=== PATIENT | female | born 1995 | race Two or more races ===

== ENCOUNTER 2018-07-22 17:59 | Inpatient (IN) | payer OTHER ==
[~2018-07-22] VITALS: Ht 160 cm; Wt 88.0 kg
[2018-07-22] MEDS ORDERED: PRENATAL TABLE1 EAC2 PO (20:56)
== END 2018-07-26 14:53 | disposition home or self-care (01) | DRG 807 ==
LOC: OB/GYN 17:59 → LDR 17:59 → OB/GYN 07-24 01:50
PROC: 4A1HXCZ Monitoring of Products of Conception, Cardiac Rate, External Approach (ICD-10-PCS; 2018-07-22)
PROC: 10E0XZZ Delivery of Products of Conception, External Approach (ICD-10-PCS; principal; 2018-07-24)
DX: O36.5930 Maternal care for other known or suspected poor fetal growth, third trimester, not applicable or unspecified (principal); Z37.0 Single live birth; Z3A.39 39 weeks gestation of pregnancy

== ENCOUNTER 2023-10-08 08:55 | Emergency (ER) | payer OTHER ==
[~2023-10-08] VITALS: Ht 165.1 cm; Wt 77.1 kg
[~2023-10-08 08:55] MED LIST: PRENATAL TABLE1 EAC2 PO
[2023-10-08] MEDS ORDERED: CEFTRIAXONE SODIUM 1,000 MG VIAL IM ONE (11:00)
[2023-10-08] MEDS ORDERED: KETOROLAC TROMETHAMINE 60 MG VIAL IM ONE (11:00)
[2023-10-08 11:16] LABS: HEMATOCRIT 36.7 % (36.0-45.00); HEMOGLOBIN 12.5 g/dL (12.0-15.00); MEAN CORPUSCULAR HEMOGLOBIN 29.6 pg (27.00-32.0); PLATELET COUNT 270 K/uL (150-450); RED BLOOD COUNT 4.21 M/uL (4.00-6.00); RED CELL DISTRIBUTION WIDTH 13.5 % (11.5-14.5)
[2023-10-08 11:43] LABS: PH,URINE 6.5 (5.0-8.0); URINE APPEARANCE Cloudy; URINE BILIRRUBIN Negative (NEGATIVE); URINE BLOOD Small; URINE COLOR Yellow; URINE GLUCOSE Negative (NEGATIVE); URINE LEUKOCYTE Moderate; URINE NITRATE Negative; URINE PROTEIN Trace (NEGATIVE)
[2023-10-08 11:44] LABS: URINE BACTERIA 2271.6 uL (0.0-1933); URINE EPITHELIAL CELLS 28.1 uL (0.0-38.8); URINE RBC 57.6 uL (0.0-20.8); URINE WBC 972.4 uL (0.0-23.2)
== END 2023-10-08 12:50 | disposition home or self-care (01) ==
LOC: ER 08:55
PROVIDERS: General Practice
DX: N30.90 Cystitis, unspecified without hematuria (principal)